=== PATIENT | female | born 1970 | race African-American/Black ===

== ENCOUNTER 2021-08-25 16:13 | Emergency (ER) | payer OTHER ==
[~2021-08-25] VITALS: Ht 149.9 cm; Wt 101.3 kg
[2021-08-25] MEDS ORDERED: IV NORMAL SALINE 1,000ML 1,000 ML IV ONE (16:45)
--- NOTE | 2021-08-25 16:57 | RAD ---
EXAM: CHEST 1 VIEW History: Chest pain COMPARISON: None available. TECHNIQUE: Single portable radiograph of the chest FINDINGS: The cardiac silhouette is unremarkable. Mild bibasilar lung atelectasis or infiltrates. Th e costophrenic sulci are clear and well demarcated. IMPRESSION: Mild bibasilar lung atelectasis or infiltrates. Electronically signed by: Harrison Song MD (08/25/2021 4:55 PM) [id number]
--- NOTE | 2021-08-25 17:00 | PHYS DOC ---
Past History Past Medical History: No Pertinent History (JENNIFER MIRANDA DO) Past Surgical History: No Surgical History (JENNIFER MIRANDA DO) Smoking: Non-smoker Alcohol Use: None Drug Use: None (JENNIFER MIRANDA DO) General Adult EDM: Chief Complaint: CHEST PAIN HPI: HPI: Patient is a 50-year-old female who presents to the emergency department today for left-sided chest pain that radiates to her left arm, neck and back and epigastric region that started on . Patient describes the pain as sharp. She rates it 9 out of 10. It is worse with deep inspiration and cough. Patient reports that the pain is intermittent and is associated with shortness of breath, nausea, vomiting, nonproductive cough and fevers. She reports that she has vomited 3 times since . Patient was diagnosed with COVID-19 10 days ago. Patient denies any leg swelling, recent surgeries. (SRUTHI GÓMEZ APRN) Review of Systems: Review of Systems: Constitutional: negative unless reported in HPI Eyes: negative unless reported in HPI HENT: negative unless reported in HPI Respiratory: negative unless reported in HPI Cardiovascular: negative unless reported in HPI GI: negative unless reported in HPI : negative unless reported in HPI Musculoskeletal: negative unless reported in HPI Integument: negative unless reported in HPI Neurologic: negative unless reported in HPI Endocrine: negative unless reported in HPI Lymphatic: negative unless reported in HPI Psychiatric: negative unless reported in HPI (SRUTHI GÓMEZ APRN) Current Medications: Current Meds: Current Medications Medications (Trade) Dose Ordered Sig/Leigh Start Time Stop Time Status Last Admin Dose Admin Fentanyl Citrate (Fentanyl 2ml Vial) 50 mcg 1X ONCE 08/25/21 16:45 08/25/21 16:46 UNV Sodium Chloride 1,000 ml @ 1,000 mls/hr 1X ONCE 08/25/21 16:45 08/25/21 17:44 UNV (SRUTHI GÓMEZ APRN) Physical Exam: PE: Constitutional: Well developed, well nourished, no acute distress, non-toxic appearance. [] HENT: Normocephalic, atraumatic, bilateral external ears normal, oropharynx moist, no oral exudates, nose normal. [] Eyes: PERRL, EOMI, conjunctiva normal, no discharge. [] Neck: Normal range of motion, no tenderness, supple, no stridor. [] Cardiovascular:Heart rate regular rhythm, no murmur chest pain is reproducible with palpation, deep inspiration [] Lungs & Thorax: Bilateral breath sounds clear to auscultation [] Abdomen: Bowel sounds normal, soft, no tenderness, no masses, no pulsatile masses. [] Skin: Warm, dry, no erythema, no rash. [] Back: Normal range of motion Extremities: No tenderness, no cyanosis, no clubbing, ROM intact, no edema. [] Neurologic: Alert and oriented X 3, normal motor function, normal sensory function, no focal deficits noted. [] Psychologic: Affect normal, judgement normal, mood normal. [] (SRUTHI GÓMEZ APRN) Current Patient Data: Labs: Laboratory Tests Test 08/25/21 16:50 White Blood Count 8.6 x10^3/uL Red Blood Count 4.45 x10^6/uL Hemoglobin 12.6 g/dL Hematocrit 39.0 % Mean Corpuscular Volume 88 fL Mean Corpuscular Hemoglobin 28 pg Mean Corpuscular Hemoglobin Concent 32 g/dL Red Cell Distribution Width 13.9 % Platelet Count 328 x10^3/uL Neutrophils (%) (Auto) 52 % Lymphocytes (%) (Auto) 38 % Monocytes (%) (Auto) 5 % Eosinophils (%) (Auto) 4 % Basophils (%) (Auto) 1 % Neutrophils # (Auto) 4.5 x10^3uL Lymphocytes # (Auto) 3.3 x10^3/uL Monocytes # (Auto) 0.4 x10^3/uL Eosinophils # (Auto) 0.4 x10^3/uL Basophils # (Auto) 0.1 x10^3/uL Sodium Level 142 mmol/L Potassium Level 4.0 mmol/L Chloride Level 104 mmol/L Carbon Dioxide Level 30 mmol/L Anion Gap 8 Blood Urea Nitrogen 10 mg/dL Creatinine 1.0 mg/dL Estimated GFR (Cockcroft-Gault) 58.9 BUN/Creatinine Ratio 10 Glucose Level 116 mg/dL Calcium Level 9.3 mg/dL Total Bilirubin 0.3 mg/dL Aspartate Amino Transf (AST/SGOT) 22 U/L Alanine Aminotransferase (ALT/SGPT) 36 U/L Alkaline Phosphatase 88 U/L Troponin I High Sensitivity 12 ng/L Total Protein 7.3 g/dL Albumin 3.7 g/dL Albumin/Globulin Ratio 1.0 Current Medications Medications (Trade) Dose Ordered Sig/Leigh Route PRN Reason Start Time Stop Time Status Last Admin Dose Admin Sodium Chloride 1,000 ml @ 1,000 mls/hr 1X ONCE IV 08/25/21 16:45 08/25/21 17:44 DC 08/25/21 16:45 Fentanyl Citrate (Fentanyl 2ml Vial) 50 mcg 1X ONCE IVP 08/25/21 16:45 08/25/21 17:16 DC 08/25/21 17:38 (SRUTHI GÓMEZ APRN) EKG: EKG: EKG performed by ER staff at 1635 shows sinus rhythm with a rate of 92, QTC of 445, no STEMI read by Dr. Miranda at 1640 [] (SRUTHI GÓMEZ APRN) Radiology/Procedures: Radiology/Procedures: []PROCEDURE: PORTABLE CHEST 1V EXAM: CHEST 1 VIEW History: Chest pain COMPARISON: None available. TECHNIQUE: Single portable radiograph of the chest FINDINGS: The cardiac silhouette is unremarkable. Mild bibasilar lung atelectasis or infiltrates. The costophrenic sulci are clear and well demarcated. IMPRESSION: Mild bibasilar lung atelectasis or infiltrates. Electronically signed by: Harrison Song MD (08/25/2021 4:55 PM) [id number] DICTATED AND SIGNED BY: HARRISON SONG MD DATE: 08/25/211651 CC: [facility]; EMERGENCY,DEPARTMENT; SRUTHI GÓMEZ APRN ~MTH0 0 (SRUTHI GÓMEZ APRN) Heart Score: C/O Chest Pain: Yes HEART Score for Chest Pain: HEART Score for Chest Pain Response (Comments) Value History Moderately Suspicious 1 ECG Normal 0 Age >45 - < 65 1 Risk Factors 1 or 2 Risk Factors 1 Troponin < Normal Limit 0 Total 3 Risk Factors: Risk Factors: DM, Current or recent (<one month) smoker, HTN, HLP, family history of CAD, obesity. Risk Scores: Score 0 - 3: 2.5% MACE over next 6 weeks - Discharge Home Score 4 - 6: 20.3% MACE over next 6 weeks - Admit for Clinical Observation Score 7 - 10: 72.7% MACE over next 6 weeks - Early Invasive Strategies (SRUTHI GÓMEZ APRN) Course & Med Decision Making: Course & Med Decision Making Pertinent Labs and Imaging studies reviewed. (See chart for details) [] Patient presents to the emergency department for left-sided chest pain that radiates to her arm, neck and back. Chest pain is reproducible with palpation, cough and deep inspiration. Patient was diagnosed with COVID-19 10 days ago. Patient has no medical history, she is not a current smoker. Patient is not tachycardic or hypoxic. Will score for PE is 0. Work-up in the ER consisted of blood work, EKG, chest x-ray. Patient treated with IV fluids and pain medicine. Patient CBC, CMP and troponin were all within normal limits. Chest x-ray shows mild bibasilar infiltrates, patient be treated with an antibiotic. She is advised to increase her fluids and take Tylenol and ibuprofen for pain at home. Patient's heart score is 3 she is obese and has a family history of coronary artery disease. It is likely that patient's chest pain is pleuritic in nature. Patient advised to purchase a pulse oximeter. I discussed with patient all findings and diagnostic testing as well as the need to follow-up with PCP for further evaluation and treatment or return to the ER if any new or worsening symptoms. Strict return precautions were also discussed at length. Patient voiced understanding and agreement with the plan. Patient is hemodynamically stable at the time of disposition. (SRUTHI GÓMEZ APRN) Dragon Disclaimer: Dragon Disclaimer: This electronic medical record was generated, in whole or in part, using a voice recognition dictation system. (SRUTHI GÓMEZ APRN) Departure Departure: Impression: Primary Impression: Pneumonia due to COVID-19 virus Additional Impression: Chest wall pain Disposition: HOME / SELF CARE / HOMELESS Condition: GOOD Referrals: JAZ GOLDSTEIN (PCP) Patient Instructions: Pneumonia, Adult Additional Instructions: You were seen in the emergency department today for chest pain. Your blood work was unremarkable. At this time, does not appear that you are experiencing acute coronary syndrome. Your chest x-ray does show pneumonia which will be treated with an antibiotic. Please start and finish the antibiotic completely. Increase your fluids and rest. Take ibuprofen or naproxen at home for pain. If you experience shortness of breath, you are being discharged home with inhaler that you can use as needed. I would advise you to purchase a pulse oximeter and monitor your oxygen saturations at home. Return to the emergency department if they drop below 90%. If you go home and your chest pain persists or gets worse or you develop intractable nausea or vomiting, high fevers refractory to treatment, lightheadedness you need to return to the emergency department for reevaluation. Please follow-up with your primary care provider tomorrow. Scripts Tramadol Hcl (ULTRAM) 50 Mg Tablet 1 TAB PO PRN BID PRN for pain MDD 2 Tablet(s) for 3 Days, #6 TAB 0 Refills Prov: SRUTHI GÓMEZ APRN 08/25/21 Albuterol Sulfate (PROAIR HFA INHALER) 8.5 Gm Hfa.aer.ad 2 PUFF IH PRN Q4-6HRS PRN for wheezing for 21 Days, #1 INHALER 0 Refills as needed for wheezing Prov: SRUTHI GÓMEZ APRN 08/25/21 Azithromycin (AZITHROMYCIN TABLET) 250 Mg Tablet 1 PKG PO UD for pneumonia for 5 Days, #6 TAB 0 Refills 2 the first day followed by 1 for days 2-5 Prov: SRUTHI GÓMEZ APRN 08/25/21 Attending Signature Attending Signature I have reviewed the PA/FINANCIAL ACCOUNTING MANAGER's note and plan of care. I was available for consultation as needed during the patient's visit in the emergency department. I agree with the clinical impression, plan, and disposition. (JENNIFER MIRANDA DO) SRUTHI GÓMEZ APRN Aug 25, 2021 16:59 JENNIFER MIRANDA DO Aug 25, 2021 22:05
[2021-08-25 17:23] LABS: BASO # 0.1 x10^3/uL (0.0-0.2); BASO % 1 % (0-3); EOS # 0.4 x10^3/uL (0.0-0.7); EOS % 4 % (0-3); HEMOGLOBIN 12.6 g/dL (12.0-15.5); LYMPH # 3.3 x10^3/uL (1.0-4.8); LYMPH % 38 % (24-48); MEAN CORPUSCULAR HEMOGLOBIN 28 pg (25-35); MEAN CORPUSCULAR HGB CONC 32 g/dL (31-37); MEAN CORPUSCULAR VOLUME 88 fL (79-100); MONO # 0.4 x10^3/uL (0.0-1.1); MONO % 5 % (0-9); NEUT # 4.5 x10^3uL (1.8-7.7); NEUT % 52 % (31-73); PLATELET COUNT 328 x10^3/uL (140-400); RED BLOOD COUNT 4.45 x10^6/uL (3.50-5.40); RED CELL DISTRIBUTION WIDTH 13.9 % (11.5-14.5); WHITE BLOOD COUNT 8.6 x10^3/uL (4.0-11.0)
[2021-08-25 17:29] LABS: CALCIUM 9.3 mg/dL (8.5-10.1); GFR 58.9
[2021-08-25 17:30] VITALS: BP 113/58
[2021-08-25 17:35] LABS: ALBUMIN 3.7 g/dL (3.4-5.0); TOTAL BILIRUBIN 0.3 mg/dL (0.2-1.0); TOTAL PROTEIN 7.3 g/dL (6.4-8.2)
[2021-08-25] MEDS ORDERED: ALBU2.5V8 IH (17:49)
[2021-08-25] MEDS ORDERED: AZIT250T6 PO (17:49)
[2021-08-25] MEDS ORDERED: TRAM-48 PO (18:09)
--- NOTE | 2021-08-25 20:21 | EKG ---
[address] [address] Test Date: 2021-08-25 Test Time: 16:35:34 Pat Name: ALLIE ARCHULETA Department: Room: Gender: F Obstetrician And Gynaecologist: DOMINGO : 1970 Requested By: SRUTHI GÓMEZ Order Number: [id number] Reading MD: Yousuf Harry Measurements Intervals Cassandra Rate: 92 P: 49 MS: 176 QRS: 26 QRSD: 78 T: 31 QT: 356 QTc: 445 Interpretive Statements SINUS RHYTHM Electronically Signed On 08-26-2021 12:28:30 TECHNICAL COMMUNICATION TEACHER by Yousuf Harry
== END 2021-08-25 18:30 | disposition home or self-care (01) ==
LOC: ER 16:13
DX: U07.1 COVID-19 (principal); J12.82 Pneumonia due to coronavirus disease 2019; R07.89 Other chest pain
CPT/HCPCS: 36415; 71045; 80053; 84484; 85025; 93005; 96361; 96374; 99285; J3010; J7030